=== PATIENT | female | born 1985 | race Caucasian/White ===

== ENCOUNTER 2022-05-13 21:30 | Emergency (ER) | payer OTHER ==
[~2022-05-13] VITALS: Ht 167.6 cm; Wt 103.4 kg
[2022-05-13 22:03] LABS: BASO # 0.1 10*3/uL (0.0-0.1); BASO % 1.1 % (0.0-1.0); EOS # 0.2 10*3/uL (0.0-0.4); EOS % 2.8 % (1.0-4.0); HEMATOCRIT 47.1 % (37.0-47.0); LYMPH # 2.2 10*3/uL (1.3-4.4); LYMPH % 27.6 % (27.0-41.0); MEAN CORPUSCULAR HGB 29.3 pg (27.0-31.0); MEAN CORPUSCULAR HGB CONC 33.3 g/dl (33.0-37.0); MEAN PLATELET VOLUME 9.4 fl (9.6-12.3); MONO # 0.5 10*3/uL (0.1-1.0); MONO % 6.4 % (3.0-9.0); NEUT # 4.7 10*3/uL (2.3-7.9); NEUT % 60.2 % (47.0-73.0); PLATELET COUNT AUTOMATED 300 10*3/uL (130-400); RED BLOOD COUNT 5.35 10*6/uL (4.10-5.10); RED CELL DISTRI WIDTH 13.6 % (0-14.5); WHITE BLOOD COUNT 7.8 10*3/uL (4.8-10.8)
[2022-05-13 22:17] LABS: ALKALINE PHOSPHATASE 79 U/L (46-116); BUN 13 mg/dl (9-23); CHLORIDE 109 mmol/L (98-107); CREATININE 0.79 mg/dL (0.55-1.02); POTASSIUM 3.8 mmol/L (3.4-5.1); SGPT/ALT 13 U/L (10-49); SODIUM 139 mmol/L (136-145); TOTAL PROTEIN 5.8 gm/dL (6.0-8.0)
[2022-05-14] MEDS ORDERED: NIGHTTIME SLEEP PO (00:25)
== END 2022-05-14 00:33 | disposition home or self-care (01) ==
LOC: ED 21:30
PROVIDERS: Emergency Medicine
DX: T78.40XA Allergy, unspecified, initial encounter (principal); L50.9 Urticaria, unspecified; Y92.89 Other specified places as the place of occurrence of the external cause

== ENCOUNTER 2022-05-30 20:21 | Emergency (ER) | payer OTHER ==
[~2022-05-30] VITALS: Ht 167.6 cm; Wt 96.2 kg
[~2022-05-30 20:21] MED LIST: NIGHTTIME SLEEP PO
[2022-05-30 20:51] LABS: BILIRUBIN Negative (Negative); BLOOD 2+ (Negative); CLARITY Cloudy (Clear); COLOR Yellow (Yellow); GLUCOSE Negative (Negative); KETONE Negative (Negative); LEUKO ESTERASE 3+ (Negative); NITRITE Negative (Negative); PH 6.5 (4.5-8.0)
[2022-05-30 20:53] LABS: BASO # 0.1 10*3/uL (0.0-0.1); BASO % 1.2 % (0.0-1.0); EOS # 0.2 10*3/uL (0.0-0.4); EOS % 2.5 % (1.0-4.0); HEMATOCRIT 43.9 % (37.0-47.0); LYMPH # 1.3 10*3/uL (1.3-4.4); LYMPH % 16.4 % (27.0-41.0); MEAN CELL VOLUME 87.8 fl (81.0-99.0); MEAN CORPUSCULAR HGB 29.4 pg (27.0-31.0); MEAN CORPUSCULAR HGB CONC 33.5 g/dl (33.0-37.0); MEAN PLATELET VOLUME 9.6 fl (9.6-12.3); MONO # 0.6 10*3/uL (0.1-1.0); MONO % 7.6 % (3.0-9.0); NEUT # 5.5 10*3/uL (2.3-7.9); NEUT % 72.2 % (47.0-73.0); PLATELET COUNT AUTOMATED 279 10*3/uL (130-400); RED CELL DISTRI WIDTH 12.9 % (0-14.5); WHITE BLOOD COUNT 7.6 10*3/uL (4.8-10.8)
[2022-05-30 21:06] LABS: BACTERIA 2+; RBC 16-20 rbc/hpf (0-2); WBC TNTC wbc/hpf (0-5)
[2022-05-30 21:08] LABS: ALKALINE PHOSPHATASE 80 U/L (46-116); BUN 13 mg/dl (9-23); CHLORIDE 110 mmol/L (98-107); POTASSIUM 4.3 mmol/L (3.4-5.1); SGPT/ALT 76 U/L (10-49); TOTAL PROTEIN 6.6 gm/dL (6.0-8.0)
[2022-05-30] MEDS ORDERED: MACROBID100 M1 PO (22:08)
== END 2022-05-30 22:27 | disposition home or self-care (01) ==
LOC: ED 20:21
PROVIDERS: Emergency Medicine
DX: O86.20 Urinary tract infection following delivery, unspecified (principal); N39.0 Urinary tract infection, site not specified; Z88.0 Allergy status to penicillin; Z90.49 Acquired absence of other specified parts of digestive tract

== ENCOUNTER 2024-10-24 10:17 | Emergency (ER) | payer OTHER ==
[~2024-10-24] VITALS: Ht 167.6 cm; Wt 77.1 kg
[~2024-10-24 10:17] MED LIST changes: +MACROBID100 M1 PO
[2024-10-24] MEDS ORDERED: Meclizine Hydrochloride 25 MG TAB PO ONE (10:50)
[2024-10-24 11:02] LABS: BASO # 0.1 10*3/uL (0.0-0.1); BASO % 0.9 % (0.0-1.0); EOS # 0.2 10*3/uL (0.0-0.4); EOS % 2.1 % (1.0-4.0); HEMATOCRIT 42.8 % (37.0-47.0); MEAN CELL VOLUME 87.5 fl (81.0-99.0); MEAN CORPUSCULAR HGB CONC 33.2 g/dl (33.0-37.0); MEAN PLATELET VOLUME 9.4 fl (9.6-12.3); MONO # 0.5 10*3/uL (0.1-1.0); MONO % 6.2 % (3.0-9.0); NEUT # 5.4 10*3/uL (2.3-7.9); PLATELET COUNT AUTOMATED 288 10*3/uL (130-400); RED BLOOD COUNT 4.89 10*6/uL (4.10-5.10); RED CELL DISTRI WIDTH 12.2 % (0-14.5); WHITE BLOOD COUNT 7.7 10*3/uL (4.8-10.8)
[2024-10-24 11:25] LABS: BUN 8 mg/dl (9-23); CHLORIDE 105 mmol/L (98-107); POTASSIUM 3.8 mmol/L (3.4-5.1)
[2024-10-24] MEDS ORDERED: Ondansetron4 MG PO (12:07)
[2024-10-24] MEDS ORDERED: Meclizine25 MG PO (12:07)
== END 2024-10-24 12:15 | disposition home or self-care (01) ==
LOC: ED 10:17
PROVIDERS: Physician Assistant Medical
DX: R42 Dizziness and giddiness (principal); R19.7 Diarrhea, unspecified; R11.0 Nausea; J45.909 Unspecified asthma, uncomplicated; Z98.890 Other specified postprocedural states; Z88.0 Allergy status to penicillin; Z79.899 Other long term (current) drug therapy; Z87.42 Personal history of other diseases of the female genital tract

== ENCOUNTER 2024-12-10 18:36 | Emergency (ER) | payer OTHER ==
[~2024-12-10] VITALS: Ht 167.6 cm; Wt 77.1 kg
[~2024-12-10 18:36] MED LIST changes: +Meclizine25 MG PO; +Ondansetron4 MG PO
[2024-12-10] MEDS ORDERED: SODIUM CHLORIDE 0.9% 1,000 ML IV ONE (19:00)
[2024-12-10 19:01] LABS: BASO # 0.1 10*3/uL (0.0-0.1); BASO % 0.9 % (0.0-1.0); EOS # 0.1 10*3/uL (0.0-0.4); EOS % 2.0 % (1.0-4.0); MEAN CELL VOLUME 87.2 fl (81.0-99.0); MEAN CORPUSCULAR HGB 29.1 pg (27.0-31.0); MEAN PLATELET VOLUME 10.1 fl (9.6-12.3); MONO # 0.5 10*3/uL (0.1-1.0); MONO % 6.9 % (3.0-9.0); NEUT # 4.8 10*3/uL (2.3-7.9); NEUT % 72.8 % (47.0-73.0); NUCLEATED RED BLOOD CELL 0.0 % (0.0-0.0); NUCLEATED RED BLOOD CELL 0.0 10*3/uL (0.0-0.0); PLATELET COUNT AUTOMATED 237 10*3/uL (130-400); RED CELL DISTRI WIDTH 13.2 % (0-14.5)
[2024-12-10] MEDS ORDERED: Ondansetron Hydrochloride 4 MG/2 ML VIAL IV ONE (19:05)
[2024-12-10 19:27] LABS: BUN 8 mg/dl (9-23); SGPT/ALT 16 U/L (5-49)
[2024-12-10] MEDS ORDERED: diazePAM 10 MG/2 ML SYR IV ONE (19:35)
[2024-12-10 20:31] LABS: BILIRUBIN Negative (Negative); BLOOD Negative (Negative); CLARITY Clear (Clear); COLOR Yellow (Yellow); KETONE Negative (Negative); LEUKO ESTERASE 2+ (Negative); NITRITE Negative (Negative); SPECIFIC GRAVITY <= 1.005 (1.001-1.030); UROBILINOGEN 0.2 E.U./dl (0.0-1.0)
[2024-12-10 20:38] LABS: URINE AMPHETAMINES Negative (1000ng/ml); URINE BARBITURATES Negative (200ng/ml); URINE BENZODIAZEPINES Negative (200ng/ml); URINE CANNABINOIDS (THC) Negative (50ng/ml); URINE COCAINE Negative (300ng/ml); URINE METHADONE Negative (300ng/ml); URINE OPIATES Negative (300ng/ml); URINE PHENCYCLIDINE Negative (25ng/ml)
[2024-12-10 20:41] LABS: PH 8.5 (4.5-8.0)
[2024-12-10 20:43] LABS: BACTERIA 1+
[2024-12-10] MEDS ORDERED: LORazepam 1 MG TAB PO ONE (21:25)
[2024-12-10] MEDS ORDERED: ATIVAN1 MG PO (21:26)
== END 2024-12-10 21:33 | disposition home or self-care (01) ==
LOC: ED 18:36
PROVIDERS: Nurse Practitioner Family
DX: F41.9 Anxiety disorder, unspecified (principal); J45.909 Unspecified asthma, uncomplicated; Z79.899 Other long term (current) drug therapy; Z88.0 Allergy status to penicillin; Z90.49 Acquired absence of other specified parts of digestive tract